=== PATIENT | female | born 1985 | race Caucasian/White ===

== ENCOUNTER 2016-09-30 12:43 | Emergency (ER) | payer SELFPAY ==
[~2016-09-30] VITALS: Ht 154.9 cm; Wt 84.0 kg
[2016-09-30] MEDS ORDERED: PERCOCET 5MG/325MG TAB As Ordered ONE (13:17)
[2016-09-30] MEDS ORDERED: PERCOCET 5MG/325MG TAB PO ONE (13:30)
--- NOTE | 2016-09-30 13:54 | REP ---
Left ankle four views: Mineralization and joint space are normal. The mortise is symmetric. There is no ankle fracture or dislocation. However, there is a bony fragment adjacent to the fifth digit metatarsal base compatible with a proximal metatarsal fracture. Impression: No ankle fracture. Question fracture at the base of the fifth digit metatarsal. Signed by Jonh Caldera MD 09/30/2016 01:46 P
--- NOTE | 2016-09-30 13:56 | REP ---
Left foot four views: I suspect there is a fracture at the base of the fifth digit metatarsal. There is no dislocation, however and one oblique view the fracture fragment appears displaced. Mineralization and joint spaces are otherwise unremarkable. No radiopaque foreign bodies are identified. Impression: Fracture at the base of the fifth digit metatarsal. On one oblique view the fracture fragment appears displaced. Signed by Jonh Caldera MD 09/30/2016 01:47 P
[2016-09-30] MEDS ORDERED: NAPR500T PO (14:39)
[2016-09-30] MEDS ORDERED: TRAM50TA2 PO (14:41)
[2016-09-30 14:52] VITALS: BP 129/78
== END 2016-09-30 15:01 | disposition home or self-care (01) ==
LOC: M ED 12:43
DX: S92.355A Nondisplaced fracture of fifth metatarsal bone, left foot, initial encounter for closed fracture (principal); X50.3XXA Overexertion from repetitive movements, initial encounter; Y92.099 Unspecified place in other non-institutional residence as the place of occurrence of the external cause; Y93.01 Activity, walking, marching and hiking; Y99.9 Unspecified external cause status

== ENCOUNTER 2016-11-08 16:12 | Emergency (ER) | payer MEDICAID, SELFPAY ==
[~2016-11-08] VITALS: Ht 154.9 cm; Wt 81.8 kg
[~2016-11-08 16:12] MED LIST: NAPR500T PO; TRAM50TA2 PO
[2016-11-08] MEDS ORDERED: MAGICMW SSP (19:11)
[2016-11-08] MEDS ORDERED: MAGIC MOUTHWASH SUSPENSION BTL SS ONE (19:15)
[2016-11-08 19:17] VITALS: BP 123/82
== END 2016-11-08 19:26 | disposition home or self-care (01) ==
LOC: M ED 16:12
DX: J02.9 Acute pharyngitis, unspecified (principal); Z87.891 Personal history of nicotine dependence

== ENCOUNTER → 2017-02-14 | Outpatient (REF) | payer OTHER ==
[~2017-02-14] MED LIST changes: +MAGICMW SSP
== END ==
LOC: M LAB REF 12:37
PROVIDERS: ATTEND Psychiatry & Neurology Child & Adolescent Psychiatry
DX: F43.12 Post-traumatic stress disorder, chronic (principal)

== ENCOUNTER → 2017-02-16 | Outpatient (CLI) | payer OTHER ==
[2017-02-16 17:30] LABS: ALBUMIN 3.6 GM/DL (3.2-5.2); ALBUMIN/GLOBULIN RATIO 1.13 (1.00-1.93); ALKALINE PHOSPHATASE 100 U/L (45-117); ALT/SGPT 18 U/L (12-78); ANION GAP 7 MEQ/L (8-16); AST/SGOT 12 U/L (7-37); BILIRUBIN,TOTAL 0.3 MG/DL (0.2-1.0); BLOOD UREA NITROGEN 14 MG/DL (7-18); CALCIUM LEVEL 8.6 MG/DL (8.5-10.1); CARBON DIOXIDE LEVEL 29 MEQ/L (21-32); CHLORIDE LEVEL 106 MEQ/L (98-107); CREATININE FOR GFR 1.01 MG/DL (0.55-1.02); GLOMERULAR FILTRATION RATE > 60.0 (>60); GLUCOSE, FASTING 95 MG/DL (70-105); POTASSIUM SERUM 4.1 MEQ/L (3.5-5.1); SODIUM LEVEL 142 MEQ/L (136-145); TOTAL PROTEIN 6.8 GM/DL (6.4-8.2)
[2017-02-16 17:31] LABS: BASO % 0.3 % (0.0-1.0); EOS # 0.1 10^3/uL (0.0-0.50); EOS % 1.6 % (0.0-3.0); IMMATURE GRANULOCYTE % 0.2 % (0-0); LYMPH # 1.3 10^3/uL (1.5-4.5); LYMPH % 21.7 % (24.0-44.0); MEAN CORPUSCULAR HGB CONC 32.2 g/dl (32.0-36.5); MEAN CORPUSCULAR VOLUME 93.1 fl (80.0-96.0); MONO # 0.4 10^3/uL (0.0-0.8); MONO % 6.4 % (0.0-5.0); NEUTROPHILS # 4.3 10^3/uL (1.8-7.7); NEUTROPHILS % 69.8 % (36.0-66.0); PLATELET COUNT, AUTOMATED 240 10^3/uL (150-450); RED CELL DISTRIBUTION WIDTH 13.5 % (11.5-14.5); WHITE BLOOD COUNT 6.1 10^3/uL (4.0-10.0)
== END ==
LOC: M WUC 13:43
PROVIDERS: ATTEND Psychiatry & Neurology Child & Adolescent Psychiatry
DX: F43.12 Post-traumatic stress disorder, chronic (principal)

== ENCOUNTER → 2017-03-28 | Outpatient (CLI) | payer OTHER | LOC: M CARPUL 11:02 | DX: J45.20 Mild intermittent asthma, uncomplicated (principal) ==

== ENCOUNTER → 2017-05-02 | Outpatient (CLI) | payer OTHER ==
[2017-05-02 13:26] LABS: BASO % 0.3 % (0.0-1.0); EOS # 0.1 10^3/uL (0.0-0.50); HEMATOCRIT 40.7 % (36.0-47.0); HEMOGLOBIN 13.1 g/dl (12.0-16.0); IMMATURE GRANULOCYTE % 0.2 % (0-3.0); LYMPH # 1.4 10^3/uL (1.5-4.5); LYMPH % 21.8 % (24.0-44.0); MEAN CORPUSCULAR HEMOGLOBIN 29.9 pg (27.0-33.0); MEAN CORPUSCULAR HGB CONC 32.2 g/dl (32.0-36.5); MEAN CORPUSCULAR VOLUME 92.9 fl (80.0-96.0); MONO # 0.5 10^3/uL (0.0-0.8); MONO % 7.6 % (0.0-5.0); NEUTROPHILS # 4.4 10^3/uL (1.8-7.7); NEUTROPHILS % 68.1 % (36.0-66.0); PLATELET COUNT, AUTOMATED 278 10^3/uL (150-450); RED BLOOD COUNT 4.38 10^6/uL (4.00-5.40); RED CELL DISTRIBUTION WIDTH 13.7 % (11.5-14.5); WHITE BLOOD COUNT 6.4 10^3/uL (4.0-10.0)
[2017-05-02 13:45] LABS: TOTAL 25(OH) VITAMIN D 13.4 NG/ML (30.0-100.0)
[2017-05-02 13:46] LABS: ALBUMIN 3.6 GM/DL (3.2-5.2); ALBUMIN/GLOBULIN RATIO 1.09 (1.00-1.93); ALKALINE PHOSPHATASE 126 U/L (45-117); ALT/SGPT 22 U/L (12-78); ANION GAP 9 MEQ/L (8-16); AST/SGOT 16 U/L (7-37); BILIRUBIN,TOTAL 0.4 MG/DL (0.2-1.0); BLOOD UREA NITROGEN 24 MG/DL (7-18); CALCIUM LEVEL 8.5 MG/DL (8.5-10.1); CARBON DIOXIDE LEVEL 20 MEQ/L (21-32); CHLORIDE LEVEL 109 MEQ/L (98-107); CREATININE FOR GFR 1.13 MG/DL (0.55-1.30); GLOMERULAR FILTRATION RATE 59.4 (>60); GLUCOSE, FASTING 111 MG/DL (70-100); POTASSIUM SERUM 3.8 MEQ/L (3.5-5.1); RHEUMATOID FACTOR QUANT < 10.0 IU/ML (0-15.0); SODIUM LEVEL 138 MEQ/L (136-145); TOTAL PROTEIN 6.9 GM/DL (6.4-8.2)
[2017-05-02 14:03] LABS: ERYTHROCYTE SEDIMENTATION RATE 26 mm/hr (0-20)
[2017-05-03 14:12] LABS: ANTINUCLEAR ANTIBODIES DIRECT Negative (Negative)
== END ==
LOC: M WUC 09:22
DX: R51 Headache (principal)
CPT/HCPCS: 84443

== ENCOUNTER → 2017-05-03 | Outpatient (CLI) | payer OTHER | LOC: M EKG 13:31 | DX: R00.2 Palpitations (principal); R94.31 Abnormal electrocardiogram [ECG] [EKG] | CPT/HCPCS: 93005 ==

== ENCOUNTER → 2017-05-25 | Outpatient (REF) | LOC: M SMT 13:32 | DX: M54.5 Low back pain (principal) ==